=== PATIENT | male | born 1970 | race Caucasian/White ===

== ENCOUNTER 2018-06-15 14:25 | Inpatient (IN) | payer OTHER ==
[~2018-06-15] VITALS: Ht 180.3 cm; Wt 82.5 kg
[~2018-06-15 14:25] MED LIST: FOLI-49 PO; METO-448 PO; MULT-761 PO; THIA100T10 PO
[2018-06-15 19:56] VITALS: PULSE 101
[2018-06-15 20:00] VITALS: PULSE 97
[2018-06-15] MEDS ORDERED: LORAZEPAM 2 MG INJ IV PRN (22:00)
[2018-06-15] MEDS ORDERED: BISACODYL (EC) 5 MG TAB PO PRN (22:00)
[2018-06-15] MEDS ORDERED: NACL 0.9% 3 ML SYG IV SCH (22:00)
[2018-06-15] MEDS ORDERED: DOCUSATE SODIUM 100 MG CAP PO PRN (22:00)
[2018-06-15] MEDS: CHLORDIAZEPOXIDE 25 MG CAP PO SCH (23:03)
[2018-06-15 23:30] VITALS: BP 126/82; RESP 18
[2018-06-16] VITALS (12 sets, daily range): BP systolic 120–174; BP diastolic 75–106; PULSE 84–109; RESP 16–25; Ht 180.3 cm; Wt 82.5 kg
--- NOTE | 2018-06-16 00:40 | HP ---
Date/Time of Note Date/Time of Note DATE: 06/16/18 TIME: 00:40 Assessment/Plan VTE Prophylaxis SCD applied (from Nsg): Yes Pharmacological prophylaxis: NA/contraindicated Pharm contraindication: low risk/ambulating Assessment/Plan Hospital Course This is a 47-year-old male being admitted to the telemetry floor for: #1 acute encephalopathy: Toxic metabolic versus seizure: Alcohol withdrawal possibly resulting in seizure. Will obtain a stat CT of the brain without contrast. Patient at the current time is awake and alert and he is answering questions though he does appear anxious. PRN Ativan, Librium. Banana bag daily. #2 alcohol withdrawal: Patient does appear anxious and concern is for signs of withdrawal. Librium taper, PRN Ativan. Banana bag. Folate MVI and thiamine daily. #3 suspect alcohol withdrawal seizure: We will obtain a CT of the head without contrast, fall precautions, seizure precautions, PRN Ativan for seizures, will consult neurology for any further recommendations. #4 History of hepatitis C: HCV viral load,, liver US #5 DVT GI prophylaxis: SCDs, no GI prophylaxis indicated Further treatment strategy will be implemented for the clinical course. Results 24hrs Laboratory Tests Test 06/15/18 22:49 Ethyl Alcohol Level < 10.0 H HPI/ROS Admit Date/Time Admit Date/Time Jun 15, 2018 at 19:23 Hx of Present Illness Chief complaint: Tonic-clonic seizure, alcohol withdrawal This is a 47-year-old male with a past medical history of alcohol abuse, alcohol withdrawal syndrome and alcohol withdrawal seizures who presented to [facility] after having seizures. Based on the transfer documentation it appears that the patient presented there with tonic-clonic seizures that were intermittent. Patient was also noted to have a tongue laceration. He had reportedly not drunk for 12 hours. At the facility patient was noted to have a tongue laceration and apparently had a taking care of. Patient also was given Ativan for withdrawal symptoms at the transfer facility. Upon examination [facility] patient reports that the last thing he remembers was walking down the street to get some alcohol and then next thing he knew he woke up in the hospital. He denies any headaches. He does report feeling slightly anxious. Pertinent laboratory from transfer facility please see chart for full details: CBC White blood cells 4/hemoglobin 12.3/hematocrit 36.5/platelets 195 INR 1.0 prothrombin time: 10.4/partial thromboplastin time 25 seconds Sodium 131/potassium 3.4/chloride 93/come dioxide 29/BUN 9/creatinine 0.7/bili total 1/AST 140/ALT 104/alk phos 61 Blood alcohol less than 5 EKG: Normal sinus rhythm at approximately [address] or T wave abnormalities concerning for acute ischemia. Allergies: NKDA Medications: See MAR JOO Constitutional: As per HPI Eyes : No pain discharge or redness or change in visual acuity ENT: No pain, sore throat, congestion, congestion, dysphagia or discharge Respiratory: No shortness of breath, cough, sputum, wheezing, or pleuritic pain Cardiovascular: No chest pain, palpitation, PND, or edema GI : no change in appetite, abdominal pain, nausea, vomiting, diarrhea, constipation, or change in the color his stool Genitourinary: No dysuria, hematuria, flank pain , discharge or CVA tenderness Musculoskeletal: No joint pain, back pain, neck pain, restricted range of motion in neck or joints Skin: No rash, bruising or hives Neuro: As per HPI Endocrine: No polyuria, polydipsia, temperature intolerance Psych: As per HPI PMH/Family/Social Past Medical History History of right leg cancer status post chemoradiation and surgery? hepatitis C? HTN: Medications Current Medications IV Flush (NS 3 ml) 3 ml PER PROTOCOL IV ; Start 06/15/18 at 22:00 Lorazepam (Ativan) 1 mg Q2H PRN IV seizure/withdrawl symptoms; Start 06/15/18 at 22:00 Acetaminophen (Tylenol Tab) 650 mg Q6H PRN PO PAIN LEVEL 1-3 OR FEVER; Start 06/15/18 at 22:00 Docusate Sodium (Colace) 100 mg Q12H PRN PO CONSTIPATION; Start 06/15/18 at 22:00 Bisacodyl (Dulcolax) 5 mg DAILY PRN PO CONSTIPATION; Start 06/15/18 at 22:00 Multivitamins 10 ml/Thiamine HCl 100 mg/Folic Acid 1 mg/Sodium Chloride 1,011.2 ml @ 125 mls/ hr DAILY@09 IVPB ; Start 06/16/18 at 09:00 Chlordiazepoxide (Librium) 50 mg TID PO Last administered on 06/15/18at 23:03; Admin Dose 50 MG; Start 06/15/18 at 22:00; Stop 06/16/18 at 21:59 Coded Allergies: No Known Allergy (Unverified , 03/18/18) Past Surgical History Right leg surgery Family History Significant Family History: no pertinent family hx Social History Alcohol Use: heavy Smoking Status: Unknown if ever smoked Drug Use: marijuana Exam/Review of Systems Vital Signs Vitals Vital Signs Date Temp Pulse Resp B/P (MAP) Pulse Ox O2 O2 Flow FiO2 Time Delivery Rate 06/16/18 84 00:00 06/15/18 98.6 18 126/82 98 Room Air 23:30 (97) Exam Exam General: Patient is lying in bed in no acute distress, easily arousable. HEENT: Atraumatic, normocephalic. The pupils are equal, round and reactive. Extraocular motor are intact, laceration of the tongue with sutures noted Neck: Supple with full range of motion. No rigidity or meningismus Chest: Nontender Lungs: Clear to auscultation bilaterally no crackles rales or wheezing Heart: Normal S1-S2, Regular rhythm and rate. Abdomen: Soft , nontender, nondistended , bowel sounds are present. No guarding no rebound tenderness , No masses or organomegaly. No costovertebral temporal angle mass Extremities: Normal to inspection, no edema no cyanosis Skin: Abrasion noted of the right knee Neurologic: Normal mental status, speech normal, cranial nerves II through XII are intact, motor and sensory are intact, not assessed secondary to clinical condition Psych: Appears slightly anxious SPENSER SAMANIEGO Jun 16, 2018 00:40
[2018-06-16] MEDS ORDERED: MULTIVITAMINS 10 ML, THIAMINE 100 MG, FOLIC ACID 1 MG in SOD CHLORIDE 0.9% 1,000 ML IVPB SCH (09:00)
[2018-06-16] MEDS: CHLORDIAZEPOXIDE 25 MG CAP PO SCH ×4 (09:13→22:19)
[2018-06-16] MEDS: THIAMINE 100 MG TAB PO SCH (09:28)
[2018-06-16] MEDS: FOLIC ACID 1 MG TAB PO SCH (09:29)
[2018-06-16] MEDS: MULTIVITAMINS THERAPEUTIC TAB PO SCH (09:29)
--- NOTE | 2018-06-16 13:30 | PN ---
Date/Time of Note Date/Time of Note DATE: 06/16/18 TIME: 13:24 Assessment/Plan VTE Prophylaxis Risk score (from Ns)>0 risk: 4 SCD applied (from Ns): Yes Pharmacological prophylaxis: NA/contraindicated Pharm contraindication: low risk/ambulating Lines/Catheters IV Catheter Type (from Nrsg): Peripheral IV Urinary Cath still in place: No Assessment/Plan Assessment/Plan 1. Alcohol related seizure, no recurrence 2. Alcoholism with withdrawal, on ativan PRN. thiamine and folic acid 3. HTN, norvasc 4. Hepatitis C, follow up with PCP 5. DVT prophylaxis: SCDs Result Diagram: 06/16/18 0548 06/16/18 0548 Results 24hrs Laboratory Tests Test 06/15/18 22:49 06/16/18 05:48 Ethyl Alcohol Level < 10.0 H White Blood Count 5.5 Red Blood Count 3.56 L Hemoglobin 11.9 L Hematocrit 35.5 L Mean Corpuscular Volume 99.7 Mean Corpuscular Hemoglobin 33.4 H Mean Corpuscular Hemoglobin Concent 33.5 Red Cell Distribution Width 12.2 Platelet Count 196 Mean Platelet Volume 9.9 Immature Granulocytes % 0.400 Neutrophils % 71.3 Lymphocytes % 19.4 Monocytes % 8.0 Eosinophils % 0.4 Basophils % 0.5 Nucleated Red Blood Cells % 0.0 Immature Granulocytes # 0.020 Neutrophils # 3.9 Lymphocytes # 1.1 Monocytes # 0.4 Eosinophils # 0.0 Basophils # 0.0 Nucleated Red Blood Cells # 0.0 Sodium Level 140 Potassium Level 3.6 Chloride Level 99 Carbon Dioxide Level 27 Anion Gap 14 H Blood Urea Nitrogen 14 Creatinine 0.64 Est Glomerular Filtrat Rate mL/min > 60 Glucose Level 124 Hemoglobin A1c 5.0 Calcium Level 9.1 Magnesium Level 1.8 Total Bilirubin 1.6 H Direct Bilirubin 0.00 Indirect Bilirubin 1.6 H Aspartate Amino Transf (AST/SGOT) 200 H Alanine Aminotransferase (ALT/SGPT) 131 H Alkaline Phosphatase 72 Total Protein 8.5 H Albumin 4.2 Globulin 4.30 H Albumin/Globulin Ratio 0.97 Triglycerides Level 68 Cholesterol Level 150 LDL Cholesterol, Calculated 87 HDL Cholesterol 49 Cholesterol/HDL Ratio 3.0 Thyroid Stimulating Hormone (TSH) 1.820 Subjective 24 Hr Interval Summary Free Text/Dictation full alert and oriented, no seizure Exam/Review of Systems Vital Signs Vitals Vital Signs Date Temp Pulse Resp B/P (MAP) Pulse Ox O2 O2 Flow FiO2 Time Delivery Rate 06/16/18 99.9 102 25 166/106 96 Room Air 11:56 (126) Intake and Output 06/15/18 06/15/18 06/16/18 1515:00 23:00 07:00 IntakeIntake Total 400 ml BalanceBalance 400 ml Exam Constitutional: alert, oriented, well developed Head: normocephalic, atraumatic Eyes: nl conjunctiva, EOMI, nl lids, nl sclera, PERRL ENMT: nl external ears & nose, nl lips & teeth, nl nasal mucosa & septum Neck: supple, non-tender Respiratory: clear to auscultation, normal air movement; No congested cough, No crackles/rales, No diminished breath sounds, No intercostal retraction, No labored breathing, No respirations, No tactile fremitus, No wheezing, No other Cardiovascular: regular rate and rhythm, nl pulses; No bruits, No diastolic murmur, No edema, No gallop, No irregular rhythm, No jugular venous distention (JVD), No murmurs/extra sounds, No rub, No systolic murmur, No S3, No S4, No other Gastrointestinal: soft, nl liver, spleen, non-tender Musculoskeletal: nl extremities to inspection Extremities: normal pulses; No calf tenderness, No cyanosis, No clubbing, No edema, No pitting pedal edema, No palpable cord, No tenderness, No other Neurological: [employer] II-XII intact, nl mental status, nl speech, nl strength Medications Medications Current Medications IV Flush (NS 3 ml) 3 ml PER PROTOCOL IV ; Start 06/15/18 at 22:00 Lorazepam (Ativan) 1 mg Q2H PRN IV seizure/withdrawl symptoms Last administered on 06/16/18at 11:08; Admin Dose 1 MG; Start 06/15/18 at 22:00 Acetaminophen (Tylenol Tab) 650 mg Q6H PRN PO PAIN LEVEL 1-3 OR FEVER; Start 06/15/18 at 22:00 Docusate Sodium (Colace) 100 mg Q12H PRN PO CONSTIPATION; Start 06/15/18 at 22:00 Bisacodyl (Dulcolax) 5 mg DAILY PRN PO CONSTIPATION; Start 06/15/18 at 22:00 Multivitamins 10 ml/Thiamine HCl 100 mg/Folic Acid 1 mg/Sodium Chloride 1,011.2 ml @ 125 mls/ hr DAILY@09 IVPB Last administered on 06/16/18 09:13; Admin Dose 125 MLS/HR; Start 06/16/18 at 09:00 Chlordiazepoxide (Librium) 50 mg TID PO Last administered on 06/16/18 09:13; Admin Dose 50 MG; Start 06/15/18 at 22:00; Stop 06/16/18 at 21:59 Folic Acid (Folic Acid) 1 mg DAILY PO Last administered on 06/16/18 09:29; Admin Dose 1 MG; Start 06/16/18 at 09:00 Multivitamins Therapeutic (Theragran) 1 tab DAILY PO Last administered on 06/16/18 09:29; Admin Dose 1 TAB; Start 06/16/18 at 09:00 Thiamine HCl (Vitamin B1) 100 mg DAILY PO Last administered on 06/16/18at 09:28; Admin Dose 100 MG; Start 06/16/18 at 09:00 Chlordiazepoxide (Librium) 25 mg QID PO ; Start 06/16/18 at 22:00; Stop 06/17/18 at 21:59 Chlordiazepoxide (Librium) 25 mg TID PO ; Start 06/17/18 at 22:00; Stop 06/18/18 at 21:59 CHRISTINA BUTT MD Jun 16, 2018 13:30
[2018-06-16] MEDS: AMLODIPINE 5 MG TAB PO SCH (14:03)
--- NOTE | 2018-06-16 15:13 | CONS ---
Assessment/Plan Assessment/Plan Hospital Course A: 47 yo M with Hx of ETOH abuse and other comorbidities... who presents to [facility] in [place] from an OSH for continued care following reported seizures in the context of ETOH withdrawal.. He was noted to have been encephalopathic initially, which is likely attributable to a post-ictal encephalopathy and medication effect...superimposed on ETOH w/d.. CTH is unremarkable.. P: OK to defer MRI brain for now.. Ativan IV PRN seizure > 5 min or for cluster Limit other sedating mediations where possible Await UA, UDS; Add B1, B12 levels Agree with folate, thiamine supplementation daily Other medical management and supportive care per primary Will follow clinically Result Diagram: 06/16/18 0548 06/16/18 0548 Results 24hrs Laboratory Tests Test 06/15/18 22:49 06/16/18 05:48 Ethyl Alcohol Level < 10.0 H White Blood Count 5.5 Red Blood Count 3.56 L Hemoglobin 11.9 L Hematocrit 35.5 L Mean Corpuscular Volume 99.7 Mean Corpuscular Hemoglobin 33.4 H Mean Corpuscular Hemoglobin Concent 33.5 Red Cell Distribution Width 12.2 Platelet Count 196 Mean Platelet Volume 9.9 Immature Granulocytes % 0.400 Neutrophils % 71.3 Lymphocytes % 19.4 Monocytes % 8.0 Eosinophils % 0.4 Basophils % 0.5 Nucleated Red Blood Cells % 0.0 Immature Granulocytes # 0.020 Neutrophils # 3.9 Lymphocytes # 1.1 Monocytes # 0.4 Eosinophils # 0.0 Basophils # 0.0 Nucleated Red Blood Cells # 0.0 Sodium Level 140 Potassium Level 3.6 Chloride Level 99 Carbon Dioxide Level 27 Anion Gap 14 H Blood Urea Nitrogen 14 Creatinine 0.64 Est Glomerular Filtrat Rate mL/min > 60 Glucose Level 124 Hemoglobin A1c 5.0 Calcium Level 9.1 Magnesium Level 1.8 Total Bilirubin 1.6 H Direct Bilirubin 0.00 Indirect Bilirubin 1.6 H Aspartate Amino Transf (AST/SGOT) 200 H Alanine Aminotransferase (ALT/SGPT) 131 H Alkaline Phosphatase 72 Total Protein 8.5 H Albumin 4.2 Globulin 4.30 H Albumin/Globulin Ratio 0.97 Triglycerides Level 68 Cholesterol Level 150 LDL Cholesterol, Calculated 87 HDL Cholesterol 49 Cholesterol/HDL Ratio 3.0 Thyroid Stimulating Hormone (TSH) 1.820 Consultation Date/Type/Reason Admit Date/Time Jun 15, 2018 at 19:23 Type of Consult Neurology Reason for Consultation seizure Requesting Provider: SPENSER SAMANIEGO Date/Time of Note DATE: 06/16/18 TIME: 15:13 Hx of Present Illness This is a 47 yo M with hx of heavy EtOH abuse, homelessness and other comorbidities who presents from an OSH for continued care following presumed seizures.. History was obtained from pt and chart review. The pt currently endorses anxiety but denies headache, weakness, dizziness, lethargy, confusion, tremors. It is elsewhere noted: Hx of Present Illness Chief complaint: Tonic-clonic seizure, alcohol withdrawal This is a 47-year-old male with a past medical history of alcohol abuse, alcohol withdrawal syndrome and alcohol withdrawal seizures who presented to [facility] after having seizures. Based on the transfer documentation it appears that the patient presented there with tonic-clonic seizures that were intermittent. Patient was also noted to have a tongue laceration. He had reportedly not drunk for 12 hours. At the facility patient was noted to have a tongue laceration and apparently had a taking care of. Patient also was given Ativan for withdrawal symptoms at the transfer facility. Upon examination [facility] patient reports that the last thing he remembers was walking down the street to get some alcohol and then next thing he knew he woke up in the hospital. He denies any headaches. He does report feeling slightly anxious. negative unless noted otherwise in HPI Exam/Review of Systems Vital Signs Vitals Vital Signs Date Temp Pulse Resp B/P (MAP) Pulse Ox O2 O2 Flow FiO2 Time Delivery Rate 06/16/18 90 12:01 06/16/18 99.9 25 166/106 96 Room Air 11:56 (126) Intake and Output 06/15/18 06/15/18 06/16/18 1515:00 23:00 07:00 IntakeIntake Total 400 ml BalanceBalance 400 ml Exam PE: Gen Appearance: Unkempt, disheveled, anxious HEENT: Normocephalic Cardiovascular: Regular rate Abdomen: Soft Extremities: Dry NE: The patient was alert and oriented.. Language was normal. Fund of knowledge was adequate. Pupils were equal and reactive to light. There was no afferent pupillary defect. Visual ibanez were normal. Funduscopic examination was limited. Extra-ocular movements were full. Ptosis was absent. There was no nystagmus. Facial sensation was normal. Face was symmetric with normal strength. Hearing was intact. Palate movements were normal. Neck strength was normal. There was normal tongue bulk and speed of movement. Tone was normal. Muscle bulk was normal. Tremors noted in BL hands.. Arms and legs were strong to confrontation. Vibration sensation was normal. Temperature and pinprick sensation was normal. Rapid alternating movements were normal. There was no dysmetria. There was no intention tremor. Gait was deferred due to bedrest. Arm and leg reflexes were 2+ and symmetric. Nance's sign was absent. Plantar responses were flexor. Medications Medications Current Medications IV Flush (NS 3 ml) 3 ml PER PROTOCOL IV ; Start 06/15/18 at 22:00 Lorazepam (Ativan) 1 mg Q2H PRN IV seizure/withdrawl symptoms Last administered on 06/16/18at 11:08; Admin Dose 1 MG; Start 06/15/18 at 22:00 Acetaminophen (Tylenol Tab) 650 mg Q6H PRN PO PAIN LEVEL 1-3 OR FEVER; Start 06/15/18 at 22:00 Docusate Sodium (Colace) 100 mg Q12H PRN PO CONSTIPATION; Start 06/15/18 at 22:00 Bisacodyl (Dulcolax) 5 mg DAILY PRN PO CONSTIPATION; Start 06/15/18 at 22:00 Chlordiazepoxide (Librium) 50 mg TID PO Last administered on 06/16/18at 14:03; Admin Dose 50 MG; Start 06/15/18 at 22:00; Stop 06/16/18 at 21:59 Folic Acid (Folic Acid) 1 mg DAILY PO Last administered on 06/16/18at 09:29; Admin Dose 1 MG; Start 06/16/18 at 09:00 Multivitamins Therapeutic (Theragran) 1 tab DAILY PO Last administered on 06/16at 09:29; Admin Dose 1 TAB; Start 06/16/18 at 09:00 Thiamine HCl (Vitamin B1) 100 mg DAILY PO Last administered on 06/16/18at 09:28; Admin Dose 100 MG; Start 06/16/18 at 09:00 Chlordiazepoxide (Librium) 25 mg QID PO ; Start 06/16/18 at 22:00; Stop 06/17/18 at 21:59 Chlordiazepoxide (Librium) 25 mg TID PO ; Start 06/17/18 at 22:00; Stop 06/18/18 at 21:59 Potassium Chloride 10 meq/ Sodium Chloride 1,005 ml @ 50 mls/hr Q20H6M IV ; Start 06/16/18 at 14:00 Amlodipine Besylate (Norvasc) 5 mg DAILY PO Last administered on 06/16/18at 14:03; Admin Dose 5 MG; Start 06/16/18 at 14:00 Past Medical History reviewed Medications Current Medications IV Flush (NS 3 ml) 3 ml PER PROTOCOL IV ; Start 06/15/18 at 22:00 Lorazepam (Ativan) 1 mg Q2H PRN IV seizure/withdrawl symptoms Last administered on 06/16/18at 11:08; Admin Dose 1 MG; Start 06/15/18 at 22:00 Acetaminophen (Tylenol Tab) 650 mg Q6H PRN PO PAIN LEVEL 1-3 OR FEVER; Start 06/15/18 at 22:00 Docusate Sodium (Colace) 100 mg Q12H PRN PO CONSTIPATION; Start 06/15/18 at 22:00 Bisacodyl (Dulcolax) 5 mg DAILY PRN PO CONSTIPATION; Start 06/15/18 at 22:00 Chlordiazepoxide (Librium) 50 mg TID PO Last administered on 06/16/18at 14:03; Admin Dose 50 MG; Start 06/15/18 at 22:00; Stop 06/16/18 at 21:59 Folic Acid (Folic Acid) 1 mg DAILY PO Last administered on 06/16/18at 09:29; Ad min Dose 1 MG; Start 06/16/18 at 09:00 Multivitamins Therapeutic (Theragran) 1 tab DAILY PO Last administered on 06/16/18at 09:29; Admin Dose 1 TAB; Start 06/16/18 at 09:00 Thiamine HCl (Vitamin B1) 100 mg DAILY PO Last administered on 06/16/18at 09:28; Admin Dose 100 MG; Start 06/16/18 at 09:00 Chlordiazepoxide (Librium) 25 mg QID PO ; Start 06/16/18 at 22:00; Stop 06/17/18 at 21:59 Chlordiazepoxide (Librium) 25 mg TID PO ; Start 06/17/18 at 22:00; Stop 06/18/18 at 21:59 Potassium Chloride 10 meq/ Sodium Chloride 1,005 ml @ 50 mls/hr Q20H6M IV ; Start 06/16/18 at 14:00 Amlodipine Besylate (Norvasc) 5 mg DAILY PO Last administered on 06/16/18at 14:03; Admin Dose 5 MG; Start 06/16/18 at 14:00 Allergies: Coded Allergies: No Known Allergy (Unverified , 03/18/18) Past Surgical History reviewed Social History reviewed Alcohol Use: heavy Smoking Status: Unknown if ever smoked Drug Use: marijuana LAURIE IQBAL NP Jun 16, 2018 15:13 TUSHAR OLMSTEAD Jun 17, 2018 07:11
[2018-06-16] MEDS: POTASSIUM CHLORIDE 10 MEQ in SOD CHLORIDE 0.45% 1,000 ML IV SCH (17:10)
[2018-06-17] VITALS (10 sets, daily range): BP systolic 127–148; BP diastolic 66–86; PULSE 71–138; RESP 16–22
[2018-06-17] MEDS: MULTIVITAMINS THERAPEUTIC TAB PO SCH (09:55)
[2018-06-17] MEDS: AMLODIPINE 5 MG TAB PO SCH (09:55)
[2018-06-17] MEDS: THIAMINE 100 MG TAB PO SCH (09:55)
[2018-06-17] MEDS: CHLORDIAZEPOXIDE 25 MG CAP PO SCH ×5 (09:55→20:58)
[2018-06-17] MEDS: FOLIC ACID 1 MG TAB PO SCH (09:55)
[2018-06-17] MEDS: POTASSIUM CHLORIDE 10 MEQ in SOD CHLORIDE 0.45% 1,000 ML IV SCH ×2 (10:06→16:53)
--- NOTE | 2018-06-17 14:13 | CONS ---
Assessment/Plan Assessment/Plan Hospital Course A: 47 yo M with Hx of ETOH abuse and other comorbidities... who presents to [facility] in [place] from an OSH for continued care following reported seizures in the context of ETOH withdrawal.. He was noted to have been encephalopathic initially, which is likely attributable to a post-ictal encephalopathy and medication effect...superimposed on ETOH w/d.. CTH is unremarkable.. P: OK to defer MRI brain for now.. Ativan IV PRN seizure > 5 min or for cluster Limit other sedating mediations where possible Await UA, UDS, B1 level Agree with folate, thiamine supplementation daily Other medical management and supportive care per primary Will follow clinically Result Diagram: 06/17/18 0602 06/17/18 0602 Results 24hrs Laboratory Tests Test 06/17/18 06:02 White Blood Count 5.8 Red Blood Count 3.56 L Hemoglobin 11.8 L Hematocrit 35.7 L Mean Corpuscular Volume 100.3 Mean Corpuscular Hemoglobin 33.1 H Mean Corpuscular Hemoglobin Concent 33.1 Red Cell Distribution Width 12.0 Platelet Count 203 Mean Platelet Volume 9.8 Immature Granulocytes % 0.300 Neutrophils % 66.6 Lymphocytes % 20.7 Monocytes % 11.2 H Eosinophils % 0.7 Basophils % 0.5 Nucleated Red Blood Cells % 0.0 Immature Granulocytes # 0.020 Neutrophils # 3.9 Lymphocytes # 1.2 Monocytes # 0.7 Eosinophils # 0.0 Basophils # 0.0 Nucleated Red Blood Cells # 0.0 Sodium Level 138 Potassium Level 3.5 Chloride Level 103 Carbon Dioxide Level 23 Anion Gap 12 Blood Urea Nitrogen 12 Creatinine 0.60 L Est Glomerular Filtrat Rate mL/min > 60 Glucose Level 108 Calcium Level 9.2 Total Bilirubin 1.1 Direct Bilirubin 0.00 Indirect Bilirubin 1.1 Aspartate Amino Transf (AST/SGOT) 192 H Alanine Aminotransferase (ALT/SGPT) 134 H Alkaline Phosphatase 76 Total Protein 8.2 H Albumin 4.1 Globulin 4.10 H Albumin/Globulin Ratio 1.00 Vitamin B12 Level 498 Consultation Date/Type/Reason Admit Date/Time Jun 15, 2018 at 19:23 Type of Consult Neurology Reason for Consultation seizure Requesting Provider: SPENSER SAMANIEGO Date/Time of Note DATE: 06/17/18 TIME: 14:10 24 HR Interval Summary Free Text/Dictation Continues telemetry monitoring. Pt states that he's doing much better than yesterday. Exam Vital Signs Vitals Vital Signs Date Temp Pulse Resp B/P (MAP) Pulse Ox O2 O2 Flow FiO2 Time Delivery Rate 06/17/18 95 12:01 06/17/18 99.6 19 148/84 95 Room Air 11:13 (105) Intake and Output 06/16/18 06/16/18 06/17/18 1515:00 23:00 07:00 IntakeIntake Total 1275 ml 1050 ml OutputOutput Total 850 ml BalanceBalance 425 ml 1050 ml Exam PE: Gen Appearance: Unkempt, disheveled, anxious HEENT: Normocephalic Cardiovascular: Regular rate Abdomen: Soft Extremities: Dry NE: The patient was alert and oriented.. Language was normal. Fund of knowledge was adequate. Pupils were equal and reactive to light. There was no afferent pupillary defect. Visual ibanez were normal. Funduscopic examination was limited. Extra-ocular movements were full. Ptosis was absent. There was no nystagmus. Facial sensation was normal. Face was symmetric with normal strength. Hearing was intact. Palate movements were normal. Neck strength was normal. There was normal tongue bulk and speed of movement. Tone was normal. Muscle bulk was normal. Mild tremors noted in BL hands.. Arms and legs were strong to confrontation. Vibration sensation was normal. Temperature and pinprick sensation was normal. Rapid alternating movements were normal. There was no dysmetria. There was no intention tremor. Gait was deferred due to bedrest. Arm and leg reflexes were 2+ and symmetric. Nance's sign was absent. Plantar responses were flexor. LAURIE IQBAL NP Jun 17, 2018 14:13
--- NOTE | 2018-06-17 15:41 | PN ---
Date/Time of Note Date/Time of Note DATE: 06/17/18 TIME: 15:38 Assessment/Plan VTE Prophylaxis Risk score (from Ns)>0 risk: 3 [place] [facility] [place] Pharmacological prophylaxis: LMWH Lines/Catheters IV [facility] (from [facility]): Peripheral IV Urinary Cath still in place: No Assessment/Plan Assessment/Plan 1. Alcohol related seizure, no recurrence 2. Alcoholism with withdrawal, on ativan PRN. thiamine and folic acid 3. HTN, norvasc 4. Hepatitis C, follow up with PCP 5. DVT prophylaxis: SCDs 6. Homeless, lead case manager for discharge plan Result Diagram: 06/17/18 0602 06/17/18 0602 Results 24hrs Laboratory Tests Test 06/17/18 06:02 White Blood Count 5.8 Red Blood Count 3.56 L Hemoglobin 11.8 L Hematocrit 35.7 L Mean Corpuscular Volume 100.3 Mean Corpuscular Hemoglobin 33.1 H Mean Corpuscular Hemoglobin Concent 33.1 Red Cell Distribution Width 12.0 Platelet Count 203 Mean Platelet Volume 9.8 Immature Granulocytes % 0.300 Neutrophils % 66.6 Lymphocytes % 20.7 Monocytes % 11.2 H Eosinophils % 0.7 Basophils % 0.5 Nucleated Red Blood Cells % 0.0 Immature Granulocytes # 0.020 Neutrophils # 3.9 Lymphocytes # 1.2 Monocytes # 0.7 Eosinophils # 0.0 Basophils # 0.0 Nucleated Red Blood Cells # 0.0 Sodium Level 138 Potassium Level 3.5 Chloride Level 103 Carbon Dioxide Level 23 Anion Gap 12 Blood Urea Nitrogen 12 Creatinine 0.60 L Est Glomerular Filtrat Rate mL/min > 60 Glucose Level 108 Calcium Level 9.2 Total Bilirubin 1.1 Direct Bilirubin 0.00 Indirect Bilirubin 1.1 Aspartate Amino Transf (AST/SGOT) 192 H Alanine Aminotransferase (ALT/SGPT) 134 H Alkaline Phosphatase 76 Total Protein 8.2 H Albumin 4.1 Globulin 4.10 H Albumin/Globulin Ratio 1.00 Vitamin B12 Level 498 Subjective 24 Hr Interval Summary Free Text/Dictation no seizures, alert and oriented Exam/Review of Systems Vital Signs Vitals Vital Signs Date Temp Pulse Resp B/P (MAP) Pulse Ox O2 O2 Flow FiO2 Time Delivery Rate 06/17/18 95 12:01 06/17/18 99.6 19 148/84 95 Room Air 11:13 (105) Intake and Output 06/16/18 06/16/18 06/17/18 1515:00 23:00 07:00 IntakeIntake Total 1275 ml 1050 ml OutputOutput Total 850 ml BalanceBalance 425 ml 1050 ml Exam Constitutional: alert, oriented, well developed Head: normocephalic, atraumatic Eyes: nl conjunctiva, EOMI, nl lids, nl sclera, PERRL ENMT: nl external ears & nose, nl lips & teeth, nl nasal mucosa & septum Neck: supple, non-tender Respiratory: clear to auscultation, normal air movement; No congested cough, No crackles/rales, No diminished breath sounds, No intercostal retraction, No labored breathing, No respirations, No tactile fremitus, No wheezing, No other Cardiovascular: regular rate and rhythm, nl pulses; No bruits, No diastolic murmur, No edema, No gallop, No irregular rhythm, No jugular venous distention (JVD), No murmurs/extra sounds, No rub, No systolic murmur, No S3, No S4, No other Gastrointestinal: soft, nl liver, spleen, non-tender Musculoskeletal: nl extremities to inspection Extremities: normal pulses; No calf tenderness, No cyanosis, No clubbing, No edema, No pitting pedal edema, No palpable cord, No tenderness, No other Neurological: EYEGLASS LENS GRINDER II-XII intact, nl mental status, nl speech, nl strength Skin: nl turgor Medications Medications Current Medications IV Flush (NS 3 ml) 3 ml PER PROTOCOL IV ; Start 06/15/18 at 22:00 Lorazepam (Ativan) 1 mg Q2H PRN IV seizure/withdrawl symptoms Last administered on 06/16/18at 11:08; Admin Dose 1 MG; Start 06/15/18 at 22:00 Acetaminophen (Tylenol Tab) 650 mg Q6H PRN PO PAIN LEVEL 1-3 OR FEVER; Start 06/15/18 at 22:00 Docusate Sodium (Colace) 100 mg Q12H PRN PO CONSTIPATION; Start 06/15/18 at 22:00 Bisacodyl (Dulcolax) 5 mg DAILY PRN PO CONSTIPATION; Start 06/15/18 at 22:00 Folic Acid (Folic Acid) 1 mg DAILY PO Last administered on 06/17/18at 09:55; Admin Dose 1 MG; Start 06/16/18 at 09:00 Multivitamins Therapeutic (Theragran) 1 tab DAILY PO Last administered on 06/17/18 09:55; Admin Dose 1 TAB; Start 06/16/18 at 09:00 Thiamine HCl (Vitamin B1) 100 mg DAILY PO Last administered on 06/17/18at 09:55; Admin Dose 100 MG; Start 06/16/18 at 09:00 Chlordiazepoxide (Librium) 25 mg QID PO Last administered on 06/17/18at 13:08; Admin Dose 25 MG; Start 06/16/18 at 22:00; Stop 06/17/18 at 21:59 Chlordiazepoxide (Librium) 25 mg TID PO ; Start 06/17/18 at 22:00; Stop 06/18/18 at 21:59 Potassium Chloride 10 meq/ Sodium Chloride 1,005 ml @ 50 mls/hr Q20H6M IV Last administered on 06/16/18at 17:10; Admin Dose 50 MLS/HR; Start 06/16/18 at 14:00 Amlodipine Besylate (Norvasc) 5 mg DAILY PO Last administered on 06/17/18at 09:55; Admin Dose 5 MG; Start 06/16/18 at 14:00 CHRISTINA BUTT MD Jun 17, 2018 15:41
[2018-06-17] MEDS: COLLAGENASE 5 GM (UD JAR) TOP SCH (20:58)
[2018-06-18] VITALS (11 sets, daily range): BP systolic 105–158; BP diastolic 63–90; PULSE 73–130; RESP 16–18
[2018-06-18] MEDS: COLLAGENASE 5 GM (UD JAR) TOP SCH ×2 (08:12→21:17)
[2018-06-18] MEDS: FOLIC ACID 1 MG TAB PO SCH (08:12)
[2018-06-18] MEDS: THIAMINE 100 MG TAB PO SCH (08:12)
[2018-06-18] MEDS: MULTIVITAMINS THERAPEUTIC TAB PO SCH (08:12)
[2018-06-18] MEDS: ACETAMINOPHEN 325 MG TAB PO PRN ×2 (08:12→21:17)
[2018-06-18] MEDS: CHLORDIAZEPOXIDE 25 MG CAP PO SCH ×3 (08:12→21:17)
[2018-06-18] MEDS: AMLODIPINE 5 MG TAB PO SCH (08:13)
[2018-06-18] MEDS: ENOXAPARIN 30 MG/0.3 ML SYG SC SCH (08:19)
--- NOTE | 2018-06-18 14:34 | CONS ---
Assessment/Plan Assessment/Plan Hospital Course A: 47 yo M with Hx of ETOH abuse and other comorbidities... who presents to [facility] in [place] from an OSH for continued care following reported seizures in the context of ETOH withdrawal.. He was noted to have been encephalopathic initially, which is likely attributable to a post-ictal encephalopathy and medication effect...superimposed on ETOH w/d.. CTH is unremarkable.. P: OK to defer MRI brain for now.. Ativan IV PRN seizure > 5 min or for cluster Limit other sedating mediations where possible Await UA, UDS, B1 level Agree with folate, thiamine supplementation daily Other medical management and supportive care per primary Will follow clinically Result Diagram: 06/17/18 0602 06/18/18 0538 Results 24hrs Laboratory Tests Test 06/18/18 05:38 06/18/18 11:50 Sodium Level 139 Potassium Level 3.9 Chloride Level 105 Carbon Dioxide Level 25 Anion Gap 9 Blood Urea Nitrogen 12 Creatinine 0.62 Est Glomerular Filtrat Rate mL/min > 60 Glucose Level 120 Calcium Level 9.1 Total Bilirubin 0.6 Direct Bilirubin 0.00 Indirect Bilirubin 0.6 Aspartate Amino Transf (AST/SGOT) 151 H Alanine Aminotransferase (ALT/SGPT) 120 H Alkaline Phosphatase 71 Total Protein 8.0 Albumin 4.0 Globulin 4.00 H Albumin/Globulin Ratio 1.00 Lab Scanned Report REFERENCE LAB Consultation Date/Type/Reason Admit Date/Time Jun 15, 2018 at 19:23 Type of Consult Neurology Reason for Consultation seizure Requesting Provider: SPENSER SAMANIEGO Date/Time of Note DATE: 06/18/18 TIME: 14:34 24 HR Interval Summary Free Text/Dictation Cont telemetry monitoring. Pt states he's doing much better today though has c/o constipation. Exam Vital Signs Vitals Vital Signs Date Temp Pulse Resp B/P (MAP) Pulse Ox O2 O2 Flow FiO2 Time Delivery Rate 06/18/18 83 12:18 06/18/18 98.7 16 124/76 97 Room Air 4.0 11:23 (92) Intake and Output 06/17/18 06/17/18 06/18/18 1515:00 23:00 07:00 IntakeIntake Total 750 ml 1400 ml OutputOutput Total 1700 ml BalanceBalance -950 ml 1400 ml Exam PE: Gen Appearance: Unkempt, disheveled, anxious HEENT: Normocephalic Cardiovascular: Regular rate Abdomen: Soft Extremities: Dry NE: The patient was alert and oriented.. Language was normal. Fund of knowledge was adequate. Pupils were equal and reactive to light. There was no afferent pupillary defect. Visual ibanez were normal. Funduscopic examination was limited. Extra-ocular movements were full. Ptosis was absent. There was no nystagmus. Facial sensation was normal. Face was symmetric with normal strength. Hearing was intact. Palate movements were normal. Neck strength was normal. There was normal tongue bulk and speed of movement. Tone was normal. Muscle bulk was normal. Mild tremors noted in BL hands.. Arms and legs were strong to confrontation. Vibration sensation was normal. Temperature and pinprick sensation was normal. Rapid alternating movements were normal. There was no dysmetria. There was no intention tremor. Gait was deferred due to bedrest. Arm and leg reflexes were 2+ and symmetric. Nance's sign was absent. Plantar responses were flexor. LAURIE IQBAL NP Jun 18, 2018 14:34 TUSHAR OLMSTEAD Jun 19, 2018 06:16
[2018-06-18] MEDS ORDERED: MAGNESIUM HYDROXIDE 30ML CUP PO PRN (15:00)
--- NOTE | 2018-06-18 15:54 | PN ---
Date/Time of Note Date/Time of Note DATE: 06/18/18 TIME: 15:50 Assessment/Plan VTE Prophylaxis Risk score (from Ns)>0 risk: 3 SCD applied (from Ns): Yes Pharmacological prophylaxis: LMWH Lines/Catheters IV Catheter Type (from Nrs): Peripheral IV Urinary Cath still in place: No Assessment/Plan Assessment/Plan 1. Alcohol related seizure, no recurrence 2. Alcoholism with withdrawal, on ativan PRN. thiamine and folic acid 3. HTN, norvasc 4. Hepatitis C, follow up with PCP 5. DVT prophylaxis: SCDs 6. 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 Result Diagram: 06/17/18 0602 06/18/18 0538 Results 24hrs Laboratory Tests Test 06/18/18 05:38 06/18/18 11:50 Sodium Level 139 Potassium Level 3.9 Chloride Level 105 Carbon Dioxide Level 25 Anion Gap 9 Blood Urea Nitrogen 12 Creatinine 0.62 Est Glomerular Filtrat Rate mL/min > 60 Glucose Level 120 Calcium Level 9.1 Total Bilirubin 0.6 Direct Bilirubin 0.00 Indirect Bilirubin 0.6 Aspartate Amino Transf (AST/SGOT) 151 H Alanine Aminotransferase (ALT/SGPT) 120 H Alkaline Phosphatase 71 Total Protein 8.0 Albumin 4.0 Globulin 4.00 H Albumin/Globulin Ratio 1.00 Lab Scanned Report REFERENCE LAB Subjective 24 Hr Interval Summary Free Text/Dictation weak, no seizure Exam/Review of Systems Vital Signs Vitals Vital Signs Date Temp Pulse Resp B/P (MAP) Pulse Ox O2 O2 Flow FiO2 Time Delivery Rate 06/18/18 99.9 93 18 138/89 15 Room Air 15:19 (105) 06/18/18 4.0 11:23 Intake and Output 06/17/18 06/17/18 06/18/18 1515:00 23:00 07:00 IntakeIntake Total 750 ml 1400 ml OutputOutput Total 1700 ml BalanceBalance -950 ml 1400 ml Exam Constitutional: alert, oriented, well developed Psych: no complaints, nl mood/affect Head: normocephalic, atraumatic Eyes: nl conjunctiva, EOMI, nl lids, nl sclera, PERRL ENMT: nl external ears & nose, nl lips & teeth, nl nasal mucosa & septum Neck: supple, non-tender Respiratory: clear to auscultation, normal air movement; No congested cough, No crackles/rales, No diminished breath sounds, No intercostal retraction, No labored breathing, No respirations, No tactile fremitus, No wheezing, No other Cardiovascular: regular rate and rhythm, nl pulses; No bruits, No diastolic murmur, No edema, No gallop, No irregular rhythm, No jugular venous distention (JVD), No murmurs/extra sounds, No rub, No systolic murmur, No S3, No S4, No other Gastrointestinal: soft, nl liver, spleen, non-tender Musculoskeletal: nl extremities to inspection Extremities: normal pulses; No calf tenderness, No cyanosis, No clubbing, No edema, No pitting pedal edema, No palpable cord, No tenderness, No other Neurological: OFF TRACK BETTING MANAGER II-XII intact, nl mental status, nl speech, nl strength Medications Medications Current Medications IV Flush (NS 3 ml) 3 ml PER PROTOCOL IV ; Start 06/15/18 at 22:00 Lorazepam (Ativan) 1 mg Q2H PRN IV seizure/withdrawl symptoms Last administered on 06/16/18at 11:08; Admin Dose 1 MG; Start 06/15/18 at 22:00 Acetaminophen (Tylenol Tab) 650 mg Q6H PRN PO PAIN LEVEL 1-3 OR FEVER Last administered on 06/18/18 08:12; Admin Dose 650 MG; Start 06/15/18 at 22:00 Docusate Sodium (Colace) 100 mg Q12H PRN PO CONSTIPATION; Start 06/15/18 at 22:00 Bisacodyl (Dulcolax) 5 mg DAILY PRN PO CONSTIPATION; Start 06/15/18 at 22:00 Folic Acid (Folic Acid) 1 mg DAILY PO Last administered on 06/18/18 08:12; Admin Dose 1 MG; Start 06/16/18 at 09:00 Multivitamins Therapeutic (Theragran) 1 tab DAILY PO Last administered on 06/18/18 08:12; Admin Dose 1 TAB; Start 06/16/18 at 09:00 Thiamine HCl (Vitamin B1) 100 mg DAILY PO Last administered on 06/18/18 08:12; Admin Dose 100 MG; Start 06/16/18 at 09:00 Chlordiazepoxide (Librium) 25 mg TID PO Last administered on 1/16/19at 14:20; Admin Dose 25 MG; Start 06/17/18 at 22:00; Stop 06/18/18 at 21:59 Potassium Chloride 10 meq/ Sodium Chloride 1,005 ml @ 50 mls/hr Q20H6M IV Last administered on 06/17/18at 16:53; Admin Dose 50 MLS/HR; Start 06/16/18 at 14:00 Amlodipine Besylate (Norvasc) 5 mg DAILY PO Last administered on 06/18/18at 08:13; Admin Dose 5 MG; Start 06/16/18 at 14:00 Enoxaparin Sodium (Lovenox) 30 mg DAILY SC Last administered on 06/18/18at 08:19; Admin Dose 30 MG; Start 06/18/18 at 09:00 Collagenase (Santyl) 1 applic BID TOP Last administered on 06/18/18at 08:12; Admin Dose 1 APPLIC; Start 06/17/18 at 21:00 Magnesium Hydroxide (Milk Of Mag) 30 ml DAILY PRN PO CONSTIPATION; Start 06/18/18 at 15:00 CHRISTINA BUTT MD Jun 18, 2018 15:54
[2018-06-19] VITALS (9 sets, daily range): BP systolic 138–139; BP diastolic 70–86; PULSE 78–94; RESP 16–19
[2018-06-19] MEDS: FOLIC ACID 1 MG TAB PO SCH (08:35)
[2018-06-19] MEDS: MULTIVITAMINS THERAPEUTIC TAB PO SCH (08:35)
[2018-06-19] MEDS: AMLODIPINE 5 MG TAB PO SCH (08:35)
[2018-06-19] MEDS: THIAMINE 100 MG TAB PO SCH (08:35)
[2018-06-19] MEDS: COLLAGENASE 5 GM (UD JAR) TOP SCH ×2 (08:35→21:07)
[2018-06-19] MEDS: ENOXAPARIN 30 MG/0.3 ML SYG SC SCH (08:46)
--- NOTE | 2018-06-19 14:06 | CONS ---
Assessment/Plan Assessment/Plan Hospital Course A: 47 yo M with Hx of ETOH abuse and other comorbidities... who presents to [facility] in [place] from an OSH for continued care following reported seizures in the context of ETOH withdrawal.. He was noted to have been encephalopathic initially, which is likely attributable to a post-ictal encephalopathy and medication effect...superimposed on ETOH w/d.. CTH is unremarkable.. P: OK to defer MRI brain for now.. Ativan IV PRN seizure > 5 min or for cluster Limit other sedating mediations where possible Agree with folate, thiamine supplementation daily Other medical management and supportive care per primary Will follow clinically Result Diagram: 06/17/18 0602 06/18/18 0538 Results 24hrs Laboratory Tests Test 06/18/18 21:15 Urine Color YELLOW Urine Clarity CLEAR Urine pH 6.0 Urine Specific [place] 1.011 Urine Ketones NEGATIVE Urine Nitrite NEGATIVE Urine Bilirubin NEGATIVE Urine Urobilinogen 2+ H Urine Leukocyte Esterase NEGATIVE Urine Hemoglobin NEGATIVE Urine Glucose NEGATIVE Urine Total Protein NEGATIVE Urine Opiates Screen Negative Urine Barbiturates Negative Urine Amphetamines Screen Negative Urine Benzodiazepines Screen Positive Urine Cocaine Screen Negative Urine Cannabinoids Positive Consultation Date/Type/Reason Admit Date/Time Jun 15, 2018 at 19:23 Type of Consult Neurology Reason for Consultation seizure Requesting Provider: SPENSER SAMANIEGO Date/Time of Note DATE: 06/19/18 TIME: 14:06 24 HR Interval Summary Free Text/Dictation Continues telemetry monitoring. Pt has c/o tongue pain and L elbow pain but is otherwise without neurologic complaints at this time. No seizure events reported. Exam Vital Signs Vitals Vital Signs Date Temp Pulse Resp B/P (MAP) Pulse Ox O2 O2 Flow FiO2 Time Delivery Rate 06/19/18 93 12:27 06/19/18 99.3 18 139/83 100 Room Air 11:23 (101) 06/18/18 4.0 11:23 Intake and Output 06/18/18 06/18/18 06/19/18 1515:00 23:00 07:00 IntakeIntake Total 1950 ml 1300 ml OutputOutput Total 1800 ml BalanceBalance 1950 ml -500 ml Exam PE: Gen Appearance: Unkempt, disheveled, anxious HEENT: Normocephalic Cardiovascular: Regular rate Abdomen: Soft Extremities: Dry NE: The patient was alert and oriented.. Language was normal. Fund of knowledge was adequate. Pupils were equal and reactive to light. There was no afferent pupillary defect. Visual ibanez were normal. Funduscopic examination was limited. Extra-ocular movements were full. Ptosis was absent. There was no nystagmus. Facial sensation was normal. Face was symmetric with normal strength. Hearing was intact. Palate movements were normal. Neck strength was normal. There was normal tongue bulk and speed of movement. Tone was normal. Muscle bulk was normal. Mild tremors noted in BL hands.. Arms and legs were strong to confrontation. Vibration sensation was normal. Temperature and pinprick sensation was normal. Rapid alternating movements were normal. There was no dysmetria. There was no intention tremor. Gait was deferred due to bedrest. Arm and leg reflexes were 2+ and symmetric. Nance's sign was absent. Plantar responses were flexor. LAURIE IQBAL NP Jun 19, 2018 14:06 TUSHAR OLMSTEAD Jun 20, 2018 06:11
[2018-06-19] MEDS: CHLORHEXIDINE GLUCONATE 15 ML UD CUP MT SCH ×2 (15:02→21:07)
--- NOTE | 2018-06-19 15:30 | PN ---
Date/Time of Note Date/Time of Note DATE: 06/19/18 TIME: 15:27 Assessment/Plan VTE Prophylaxis Risk score (from [facility])>0 risk: 2 SCD applied (from [facility]): Yes Pharmacological prophylaxis: NA/contraindicated Pharm contraindication: low risk/ambulating Lines/Catheters IV Catheter Type (from [facility]): [place] Urinary Cath still in place: No Assessment/Plan Assessment/Plan 1. Alcohol related seizure, no recurrence 2. Alcoholism with withdrawal, on ativan PRN. thiamine and folic acid 3. HTN, norvasc 4. Hepatitis C, follow up with PCP 5. Left elbow wound, MRSA, bactrim DS 6. Tongue ulcer, bactrim 7. DVT prophylaxis: SCDs 8. Homeless, medical case manager for discharge plan Result Diagram: 06/17/18 0602 06/18/18 0538 Results 24hrs Laboratory Tests Test 06/18/18 21:15 Urine Color YELLOW Urine Clarity CLEAR Urine pH 6.0 Urine Specific [place] 1.011 Urine Ketones NEGATIVE Urine Nitrite NEGATIVE Urine Bilirubin NEGATIVE Urine Urobilinogen 2+ H Urine Leukocyte Esterase NEGATIVE Urine Hemoglobin NEGATIVE Urine Glucose NEGATIVE Urine Total Protein NEGATIVE Urine Opiates Screen Negative Urine Barbiturates Negative Urine Amphetamines Screen Negative Urine Benzodiazepines Screen Positive Urine Cocaine Screen Negative Urine Cannabinoids Positive Subjective 24 Hr Interval Summary Free Text/Dictation no event Exam/Review of Systems Vital Signs Vitals Vital Signs Date Temp Pulse Resp B/P (MAP) Pulse Ox O2 O2 Flow FiO2 Time Delivery Rate 06/19/18 93 12:27 06/19/18 99.3 18 139/83 100 Room Air 11:23 (101) 06/18/18 4.0 11:23 Intake and Output 06/18/18 06/18/18 06/19/18 1515:00 23:00 07:00 IntakeIntake Total 1950 ml 1300 ml OutputOutput Total 1800 ml BalanceBalance 1950 ml -500 ml Exam Constitutional: alert, oriented, well developed Psych: no complaints, nl mood/affect Head: normocephalic, atraumatic Eyes: nl conjunctiva, EOMI, nl lids, PERRL ENMT: other (ulcer at left side tongue) Neck: supple, non-tender Respiratory: clear to auscultation, normal air movement; No congested cough, No crackles/rales, No diminished breath sounds, No intercostal retraction, No labored breathing, No respirations, No tactile fremitus, No wheezing, No other Cardiovascular: regular rate and rhythm, nl pulses; No bruits, No diastolic murmur, No edema, No gallop, No irregular rhythm, No jugular venous distention (JVD), No murmurs/extra sounds, No rub, No systolic murmur, No S3, No S4, No other Gastrointestinal: soft, nl liver, spleen, non-tender Extremities: other (left elbaw wound) Neurological: CARDIOVASCULAR PHYSICIAN ASSISTANT II-XII intact, nl mental status, nl speech, nl strength Medications Medications Current Medications IV Flush (NS 3 ml) 3 ml PER PROTOCOL IV ; Start 06/15/18 at 22:00 Lorazepam (Ativan) 1 mg Q2H PRN IV seizure/withdrawl symptoms Last administered on 06/16/18at 11:08; Admin Dose 1 MG; Start 06/15/18 at 22:00 Acetaminophen (Tylenol Tab) 650 mg Q6H PRN PO PAIN LEVEL 1-3 OR FEVER Last administered on 06/18/18at 21:17; Admin Dose 650 MG; Start 06/15/18 at 22:00 Docusate Sodium (Colace) 100 mg Q12H PRN PO CONSTIPATION; Start 06/15/18 at 22:00 Bisacodyl (Dulcolax) 5 mg DAILY PRN PO CONSTIPATION; Start 06/15/18 at 22:00 Folic Acid (Folic Acid) 1 mg DAILY PO Last administered on 06/19/18at 08:35; Admin Dose 1 MG; Start 06/16/18 at 09:00 Multivitamins Therapeutic (Theragran) 1 tab DAILY PO Last administered on 06/19/18at 08:35; Admin Dose 1 TAB; Start 06/16/18 at 09:00 Thiamine HCl (Vitamin B1) 100 mg DAILY PO Last administered on 06/19/18 08:35; Admin Dose 100 MG; Start 06/16/18 at 09:00 Amlodipine Besylate (Norvasc) 5 mg DAILY PO Last administered on 06/19/18at 08:35; Admin Dose 5 MG; Start 06/16/18 at 14:00 Enoxaparin Sodium (Lovenox) 30 mg DAILY SC Last administered on 06/19/18at 08:46; Admin Dose 30 MG; Start 06/18/18 at 09:00 Collagenase (Santyl) 1 applic BID TOP Last administered on 06/19/18at 08:35; Admin Dose 1 APPLIC; Start 06/17/18 at 21:00 Magnesium Hydroxide (Milk Of Mag) 30 ml DAILY PRN PO CONSTIPATION; Start 06/18/18 at 15:00 Chlorhexidine Gluconate (Peridex) 15 ml BID MT Last administered on 06/19/18at 15:02; Admin Dose 15 ML; Start 06/19/18 at 15:00 CHRISTINA BUTT MD Jun 19, 2018 15:30
[2018-06-19] MEDS: TRIMETHOPRIM/SULFAMETHOX (DS) TAB PO SCH (21:07)
[2018-06-19] MEDS: MUPIROCIN 2% 22 GM OINT TOP SCH (21:07)
[2018-06-20 01:30] VITALS: BP 137/78; PULSE 90; RESP 17
[2018-06-20 07:33] VITALS: BP 115/62; PULSE 88; RESP 18
[2018-06-20] MEDS: COLLAGENASE 5 GM (UD JAR) TOP SCH (08:56)
[2018-06-20] MEDS: FOLIC ACID 1 MG TAB PO SCH (08:57)
[2018-06-20] MEDS: TRIMETHOPRIM/SULFAMETHOX (DS) TAB PO SCH (08:57)
[2018-06-20] MEDS: MULTIVITAMINS THERAPEUTIC TAB PO SCH (08:57)
[2018-06-20] MEDS: THIAMINE 100 MG TAB PO SCH (08:58)
[2018-06-20] MEDS: AMLODIPINE 5 MG TAB PO SCH (08:58)
[2018-06-20] MEDS: ENOXAPARIN 30 MG/0.3 ML SYG SC SCH (09:00)
[2018-06-20] MEDS: CHLORHEXIDINE GLUCONATE 15 ML UD CUP MT SCH (10:26)
[2018-06-20] MEDS: MUPIROCIN 2% 22 GM OINT TOP SCH (10:26)
--- NOTE | 2018-06-20 14:22 | CONS ---
Assessment/Plan Assessment/Plan Hospital Course A: 47 yo M with Hx of ETOH abuse and other comorbidities... who presents to [facility] in [place] from an OSH for continued care following reported seizures in the context of ETOH withdrawal.. He was noted to have been encephalopathic initially, which is likely attributable to a post-ictal encephalopathy and medication effect...superimposed on ETOH w/d.. CTH is unremarkable.. P: OK to defer MRI brain for now.. Ativan IV PRN seizure > 5 min or for cluster Limit other sedating mediations where possible Agree with folate, thiamine supplementation daily Other medical management and supportive care per primary Will follow clinically Result Diagram: 06/17/18 0602 06/18/18 0538 Consultation Date/Type/Reason Admit Date/Time Jun 15, 2018 at 19:23 Type of Consult Neurology Reason for Consultation seizure Requesting Provider: SPENSER SAMANIEGO Date/Time of Note DATE: 06/20/18 TIME: 14:22 24 HR Interval Summary Free Text/Dictation Continues medsurg monitoring. No acute events reported. Awaiting discharge. Exam Vital Signs Vitals Vital Signs Date Temp Pulse Resp B/P (MAP) Pulse Ox O2 O2 Flow FiO2 Time Delivery Rate 06/20/18 98.2 88 18 115/62 98 07:33 (79) 06/20/18 Room Air 01:30 06/18/18 4.0 11:23 Intake and Output 06/19/18 06/19/18 06/20/18 1515:00 23:00 07:00 IntakeIntake Total 2160 ml 500 ml OutputOutput Total 1500 ml 200 ml BalanceBalance 660 ml 300 ml Exam PE: Gen Appearance: Unkempt, disheveled HEENT: Normocephalic Cardiovascular: Regular rate Abdomen: Soft Extremities: Dry NE: The patient was alert and oriented.. Language was normal. Fund of knowledge was adequate. Pupils were equal and reactive to light. There was no afferent pupillary defect. Visual ibanez were normal. Funduscopic examination was limited. Extra-ocular movements were full. Ptosis was absent. There was no nystagmus. Facial sensation was normal. Face was symmetric with normal strength. Hearing was intact. Palate movements were normal. Neck strength was normal. There was normal tongue bulk and speed of movement. Tone was normal. Muscle bulk was normal. Mild tremors noted in BL hands.. Arms and legs were strong to confrontation. Vibration sensation was normal. Temperature and pinprick sensation was normal. Rapid alternating movements were normal. There was no dysmetria. There was no intention tremor. Gait was deferred due to bedrest. Arm and leg reflexes were 2+ and symmetric. Nance's sign was absent. Plantar responses were flexor. LAURIE IQBAL NP Jun 20, 2018 14:22 TUSHAR OLMSTEAD Jun 21, 2018 07:52
[2018-06-20] MEDS ORDERED: AMLO-145 PO (14:39)
[2018-06-20] MEDS ORDERED: SULF-182 PO (14:39)
--- NOTE | 2018-06-20 14:43 | DS ---
Date/Time of Note Date/Time of Note DATE: 06/20/18 TIME: 14:39 Discharge Summary Admission/Discharge Info Admit Date/Time Jun 15, 2018 at 19:23 Discharge Date/Time Discharge Diagnosis 1. Alcohol related seizure, no recurrence 2. Alcoholism with withdrawal,resolved 3. HTN, controlled with norvasc 4. Hepatitis C, follow up with PCP 5. Left elbow wound, MRSA, bactrim DS 6. Tongue ulcer, bactrim Patient Condition: Stable Hospital Course This is a 47-year-old male with a past medical history of alcohol abuse, alcohol withdrawal syndrome and alcohol withdrawal seizures who presented to [facility] after having seizures. Based on the transfer documentation it appears that the patient presented there with tonic-clonic seizures that were intermittent. Patient was also noted to have a tongue laceration. He had reportedly not drunk for 12 hours. At the facility patient was noted to have a tongue laceration and apparently had a taking care of. Patient also was given Ativan for withdrawal symptoms at the transfer facility. Upon examination [facility] patient reports that the last thing he remembers was walking down the street to get some alcohol and then next thing he knew he woke up in the hospital. He denies any headaches. Patient is getting supportive care. No further seizure. No withdrawal symptoms. Patient has a wound on left elbow that is healing and an ulcer at tongue. He is discharged with bactrim DS for 7 days. His blood pressure is well controlled with norvasc. Home Meds Active Scripts Amlodipine Besylate* (Amlodipine Besylate*) 5 Mg Tablet, 5 MG PO DAILY for 30 Days, TAB Prov:CHRISTINA BUTT MD 06/20/18 Sulfamethoxazole/Trimethoprim (Sulfamethoxazole-Tmp Ds Tablet) 1 Each Tablet, 1 TAB PO BID for 7 Days, TAB Prov:CHRISTINA BUTT MD 06/20/18 Thiamine* (Thiamine*) 100 Mg Tablet, 100 MG PO DAILY, #30 TAB Prov:GELA BORRERO 03/21/18 Folic Acid* (Folic Acid*) 1 Mg Tablet, 1 MG PO DAILY, #30 TAB 2 Refills Prov:GELA BORRERO 03/21/18 Multivitamin (MULTI VITAMIN DAILY) 1 Each Tablet, 1 TAB PO DAILY, #30 TAB 2 Refills Prov:GELA BORRERO 03/21/18 Discontinued Scripts Metoprolol Tartrate* (Lopressor*) 25 Mg Tab, 25 MG PO Q6H for 30 Days, #60 TAB 2 Refills Prov:GELA BORRERO 03/21/18 Follow-up Plan PCP in one week neurology in one week Primary Care Provider Care Physician No Primary CHRISTINA BUTT MD Jun 20, 2018 14:42
[2018-06-20] MEDS ORDERED: CLIN300C10 PO (15:07)
== END 2018-06-20 15:30 | disposition home or self-care (01) | DRG 896 ==
LOC: TEL 14:25 → UNDOADMIN 14:25 → TEL 14:28 → MS1 06-20 01:23
PROVIDERS: ADMIT Internal Medicine; ATTEND Internal Medicine
DX: F10.239 Alcohol dependence with withdrawal, unspecified (principal); G92 Toxic encephalopathy; G40.89 Other seizures; B19.20 Unspecified viral hepatitis C without hepatic coma; I10 Essential (primary) hypertension; Y90.0 Blood alcohol level of less than 20 mg/100 ml; S51.002A Unspecified open wound of left elbow, initial encounter; B95.62 Methicillin resistant Staphylococcus aureus infection as the cause of diseases classified elsewhere; X58.XXXA Exposure to other specified factors, initial encounter; Y93.9 Activity, unspecified; Y92.9 Unspecified place or not applicable; Y99.8 Other external cause status; Z59.0 Homelessness
CPT/HCPCS: 70450; 76705; 80053; 80061; 80307; 81003; 82607; 83036; 83735; 84425; 84443; 85025; 87070; 87081; 87522; J1650; J2060; J3411; J3480; J7030

== ENCOUNTER 2018-07-05 09:49 | Inpatient (IN) | payer OTHER ==
[~2018-07-05] VITALS: Ht 185.4 cm; Wt 81.5 kg
[~2018-07-05 09:49] MED LIST changes: +AMLO-145 PO; +CLIN300C10 PO; -METO-448 PO
[2018-12-21 16:40] VITALS: Ht 185.4 cm; Wt 81.5 kg
[2018-12-21 17:00] VITALS: BP 159/86; PULSE 98; RESP 17
[2018-12-21] MEDS ORDERED: ONDANSETRON 4 MG INJ IV PRN (17:00)
[2018-12-21] MEDS ORDERED: LORAZEPAM 2 MG INJ IV PRN (17:00)
[2018-12-21] MEDS ORDERED: VANCOMYCIN IV PER PHARMACY XX SCH (17:00)
[2018-12-21] MEDS ORDERED: ZOLPIDEM 5 MG TAB PO PRN (17:00)
[2018-12-21] MEDS ORDERED: DOCUSATE SODIUM 100 MG CAP PO PRN (17:00)
[2018-12-21] MEDS ORDERED: NACL 0.9% 3 ML SYG IV SCH (17:00)
[2018-12-21] MEDS: morphine 2 MG INJ IV PRN (17:22)
[2018-12-21] MEDS ORDERED: VANCOMYCIN 1.5 GM/NS 250 ML 250 ML IVPB ONE (18:30)
[2018-12-21 19:53] VITALS: BP 143/79; PULSE 128; RESP 18
[2018-12-21] MEDS: ACETAMINOPHEN 325 MG TAB PO PRN (20:39)
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
[2018-12-21] MEDS: CEFEPIME 1GM/50 ML (PMX) 50 ML IVPB SCH (23:39)
[2018-12-22 01:47] VITALS: BP 136/70; PULSE 105; RESP 18
[2018-12-22] MEDS: VANCOMYCIN 750 MG (PMX) 250 ML IVPB SCH ×2 (05:05→14:30)
[2018-12-22 07:38] VITALS: BP 163/94; PULSE 112; RESP 16
[2018-12-22] MEDS: SOD CHLORIDE 0.9% 1,000 ML IV SCH ×3 (07:52→18:38)
[2018-12-22] MEDS: ACETAMINOPHEN 325 MG TAB PO PRN (07:53)
[2018-12-22] MEDS: HYDROCODONE/APAP (5/325) TAB PO PRN ×2 (08:30→15:37)
[2018-12-22] MEDS: CHLORDIAZEPOXIDE 25 MG CAP PO SCH ×3 (08:30→21:43)
[2018-12-22] MEDS: FOLIC ACID 1 MG TAB PO SCH (08:30)
[2018-12-22] MEDS: MULTIVITAMINS THERAPEUTIC TAB PO SCH (08:30)
[2018-12-22] MEDS: CEFEPIME 1GM/50 ML (PMX) 50 ML IVPB SCH ×2 (08:31→21:34)
[2018-12-22] MEDS: AMLODIPINE 5 MG TAB PO SCH (08:31)
[2018-12-22] MEDS: THIAMINE 100 MG TAB PO SCH (08:31)
[2018-12-22] MEDS ORDERED: MAGNESIUM SULFATE 2 GM/50 ML 50 ML IVPB ONE (09:00)
[2018-12-22] MEDS ORDERED: POTASSIUM CHLORIDE 100 ML IVPB ONE (09:00)
[2018-12-22 09:30] VITALS: BP 124/76; PULSE 112
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
[2018-12-22 14:41] VITALS: BP 133/84; PULSE 102; RESP 16
[2018-12-22] MEDS ORDERED: IOHEXOL 300MG/ML 150 ML BTL ONE (16:44)
[2018-12-22] MEDS ORDERED: SOD CHLORIDE 0.9% 100 ML ONE (16:44)
[2018-12-22 19:53] VITALS: BP 126/78; PULSE 101; RESP 16
[2018-12-22] MEDS: VANCOMYCIN 1 GM 250 ML IVPB SCH (21:34)
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
[2018-12-22] MEDS: morphine 2 MG INJ IV PRN (21:56)
[2018-12-23 01:23] VITALS: BP 137/76; PULSE 94; RESP 16
[2018-12-23] MEDS: VANCOMYCIN 1 GM 250 ML IVPB SCH ×3 (04:38→20:35)
[2018-12-23] MEDS: SOD CHLORIDE 0.9% 1,000 ML IV SCH ×3 (05:18→23:28)
[2018-12-23 07:46] VITALS: BP 116/83; PULSE 104; RESP 18
[2018-12-23] MEDS: THIAMINE 100 MG TAB PO SCH (08:57)
[2018-12-23] MEDS: CEFEPIME 1GM/50 ML (PMX) 50 ML IVPB SCH ×2 (08:57→20:35)
[2018-12-23] MEDS: NEOMYC/POLYMYX/BACIT 30 GM OINT TOP SCH (08:57)
[2018-12-23] MEDS: AMLODIPINE 5 MG TAB PO SCH (08:58)
[2018-12-23] MEDS: FOLIC ACID 1 MG TAB PO SCH (08:58)
[2018-12-23] MEDS: MULTIVITAMINS THERAPEUTIC TAB PO SCH (08:58)
[2018-12-23] MEDS: CHLORDIAZEPOXIDE 25 MG CAP PO SCH ×3 (08:58→20:35)
[2018-12-23] MEDS: morphine 2 MG INJ IV PRN ×2 (09:10→16:11)
[2018-12-23] MEDS: ACETAMINOPHEN 325 MG TAB PO PRN (09:18)
--- NOTE | 2018-12-23 13:13 | PN ---
DATE: 12/23/2018 SUBJECTIVE: Patient is alert, feels good. Denies pain at the moment, had been having low grade feve rs overnight with a T-max of 100.5. WBC 8, platelets 237, no shift, no bands. BUN 7, creatinine 0.5 1. Blood and urine cultures negative. Upper extremity CT revealed no drainable abscess. ANTIMICROBIALS: The patient is on: 1. IV vancomycin. 2. Cefepime. PHYSICAL EXAMINATION: GENERAL: This is well-developed, well-nourished, middle-aged man who is alert, in no distress. HEENT: Head atraumatic, normocephalic. Sclerae anicteric. Buccal mucosa pink. NECK: Supple. CHEST: Rise symmetrical. Breath sounds clear. HEART: S1, S2. ABDOMEN: Soft, bowel tones present. EXTREMITIES: With right upper extremity swelling of the forearm and elbow with erythema. ASSESSMENT: 1. Right upper extremity cellulitis. 2. Homelessness. 3. Resolving sepsis. 4. ETOH abuse. 5. Hypertension. PLAN: The patient is clinically stable. We will keep him on current antibiotics. We will continue elevation of his right upper extremity. Swab nares for MRSA. Consider hand surgical or surgical jeff luation. Dictated By: DYLON WALL [employer]OR MAKING SUPERVISOR for DERRELL LOZANO MD NI/NTS Conf#: [id number] DID#: [id number] CC: TC CARTER MD;*EndCC*
[2018-12-23 13:31] VITALS: BP 122/69; PULSE 97; RESP 18
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
[2018-12-23] MEDS ORDERED: POTASSIUM CHLORIDE (SR) 20 MEQ TAB PO STA (16:10)
[2018-12-23] MEDS: HYDROCODONE/APAP (5/325) TAB PO PRN ×2 (18:06→23:23)
[2018-12-23 20:00] VITALS: BP 132/76; PULSE 93; RESP 18
[2018-12-24 01:39] VITALS: BP 129/78; PULSE 87; RESP 18
[2018-12-24] MEDS: SOD CHLORIDE 0.9% 1,000 ML IV SCH (05:20)
[2018-12-24] MEDS: VANCOMYCIN 1 GM 250 ML IVPB SCH (05:20)
[2018-12-24] MEDS: morphine 2 MG INJ IV PRN ×3 (05:31→15:58)
[2018-12-24 07:37] VITALS: BP 130/76; PULSE 81; RESP 16
[2018-12-24] MEDS: CEFEPIME 1GM/50 ML (PMX) 50 ML IVPB SCH ×2 (09:47→20:29)
[2018-12-24] MEDS: THIAMINE 100 MG TAB PO SCH (09:48)
[2018-12-24] MEDS: CHLORDIAZEPOXIDE 25 MG CAP PO SCH ×3 (09:48→20:29)
[2018-12-24] MEDS: AMLODIPINE 5 MG TAB PO SCH (09:48)
[2018-12-24] MEDS: FOLIC ACID 1 MG TAB PO SCH (09:48)
[2018-12-24] MEDS: MULTIVITAMINS THERAPEUTIC TAB PO SCH (09:48)
[2018-12-24] MEDS: NEOMYC/POLYMYX/BACIT 30 GM OINT TOP SCH (09:49)
[2018-12-24] MEDS: VANCOMYCIN 1.25 GM/NS 250 ML 250 ML IVPB SCH ×2 (13:13→21:39)
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
--- NOTE | 2018-12-24 13:31 | CONS ---
Assessment/Plan Assessment/Plan Hospital Course (Demo Recall) SUBJECTIVE: Patient is alert looks comfortable right upper extremity looks much better, no fevers overnight WBC 5.3 no shift no bands BUN 6 creatinine 0.58 Blood and urine cultures negative. Upper extremity CT revealed no drainable abscess. ANTIMICROBIALS: The patient is on: 1. IV vancomycin. 2. Cefepime. PHYSICAL EXAMINATION: GENERAL: This is well-developed, well-nourished, middle-aged man who is alert, in no distress. HEENT: Head atraumatic, normocephalic. Sclerae anicteric. Buccal mucosa pink. NECK: Supple. CHEST: Rise symmetrical. Breath sounds clear. HEART: S1, S2. ABDOMEN: Soft, bowel tones present. EXTREMITIES: Right upper extremity swelling decreased, erythema also decreased, patient has dressing over his elbow with some drainage ASSESSMENT: 1. Right upper extremity cellulitis with self draining abscess. 2. Homelessness. 3. Resolving sepsis. 4. ETOH abuse. 5. Hypertension. PLAN: He is doing better no fevers, right upper extremity looks better, continue antibiotics, continue right upper extremity elevation, send drainage for culture, and anticipate discharge on oral antibiotics Consultation Date/Type/Reason Admit Date/Time Dec 21, 2018 at 16:41 Initial Consult Date Type of Consult id Date/Time of Note DATE: 12/24/18 TIME: 13:30 Exam/Review of Systems Exam Vitals Vital Signs Date Temp Pulse Resp B/P (MAP) Pulse Ox O2 O2 Flow FiO2 Time Delivery Rate 12/24/18 99.1 81 16 130/76 95 07:37 (94) 12/21/18 Room Air 17:00 Intake and Output 12/23/18 12/23/18 12/24/18 1515:00 23:00 07:00 IntakeIntake Total 1730 ml 2150 ml 1140 ml OutputOutput Total 900 ml 1400 ml 250 ml BalanceBalance 830 ml 750 ml 890 ml Results Result Diagram: 12/24/18 1100 12/24/18 0346 Results 24hrs Laboratory Tests Test 12/24/18 03:46 12/24/18 11:00 White Blood Count 6.8 5.3 # Red Blood Count 2.43 L 2.54 L Hemoglobin 8.0 L 8.3 L Hematocrit 24.5 L 26.1 L Mean Corpuscular Volume 100.8 102.8 H Mean Corpuscular Hemoglobin 32.9 32.7 Mean Corpuscular Hemoglobin Concent 32.7 31.8 L Red Cell Distribution Width 11.9 11.9 Platelet Count 272 304 Mean Platelet Volume 9.3 9.5 Immature Granulocytes % 0.600 H 0.600 H Neutrophils % 61.7 62.5 Lymphocytes % 22.3 21.3 Monocytes % 14.0 H 14.1 H Eosinophils % 0.7 0.9 Basophils % 0.7 0.6 Nucleated Red Blood Cells % 0.0 0.0 Immature Granulocytes # 0.040 H 0.030 Neutrophils # 4.2 3.3 Lymphocytes # 1.5 1.1 Monocytes # 1.0 H 0.8 Eosinophils # 0.1 0.1 Basophils # 0.1 0.0 Nucleated Red Blood Cells # 0.0 0.0 Sodium Level 136 Potassium Level 3.9 Chloride Level 101 Carbon Dioxide Level 27 Anion Gap 8 Blood Urea Nitrogen 6 L Creatinine 0.58 L Est Glomerular Filtrat Rate mL/min > 60 Glucose Level 107 Calcium Level 8.0 L Vancomycin Level Trough 9.9 L Medications Medication Current Medications IV Flush (NS 3 ml) 3 ml PER PROTOCOL IV ; Start 12/21/18 at 17:00 Ondansetron HCl (Zofran Inj) 4 mg Q6H PRN IV NAUSEA/VOMITING Last administered on 12/23/18at 18:07; Admin Dose 4 MG; Start 12/21/18 at 17:00 Acetaminophen (Tylenol Tab) 650 mg Q6H PRN PO .PAIN 1-3 OR TEMP Last administered on 12/23/18at 09:18; Admin Dose 650 MG; Start 12/21/18 at 17:00 Acetaminophen/ Hydrocodone Bitart ([place] (5/325)) 1 tab Q6H PRN PO .MOD PAIN 4- 6 Last administered on 12/23/18at 23:23; Admin Dose 1 TAB; Start 12/21/18 at 17:00 Morphine Sulfate (morphine) 2 mg Q4H PRN IV .SEVERE PAIN 7-10 Last administered on 12/24/18at 11:25; Admin Dose 2 MG; Start 12/21/18 at 17:00 Zolpidem Tartrate (Ambien) 5 mg QHS PRN PO .INSOMNIA; Start 12/21/18 at 17:00 Vancomycin HCl (Vanco Iv Per Pharmacy) VANCOMYCIN PER PHARMACY PER PROTOCOL XX ; Start 12/21/18 at 17:00 Amlodipine Besylate (Norvasc) 5 mg DAILY PO Last administered on 12/24/18 09:48; Admin Dose 5 MG; Start 12/22/18 at 09:00 Folic Acid (Folic Acid) 1 mg DAILY PO Last administered on 12/24/18 09:48; Admin Dose 1 MG; Start 12/22/18 at 09:00 Multivitamins Therapeutic (Theragran) 1 tab DAILY PO Last administered on 12/24/18 09:48; Admin Dose 1 TAB; Start 12/22/18 at 09:00 Thiamine HCl (Vitamin B1) 100 mg DAILY PO Last administered on 12/24/18 09:48; Admin Dose 100 MG; Start 12/22/18 at 09:00 Lorazepam (Ativan) 1 mg Q6H PRN IV AGITATION/ANXIETY Last administered on 12/21/18 17:22; Admin Dose 1 MG; Start 12/21/18 at 17:00 Cefepime HCl 50 ml @ 100 mls/hr Q12 IVPB Last administered on 12/24/18 09:47; Admin Dose 100 MLS/HR; Start 12/21/18 at 23:00 Chlordiazepoxide (Librium) 25 mg TID PO Last administered on 12/24/18 09:48; Admin Dose 25 MG; Start 12/22/18 at 09:00; Stop 12/24/18 at 21:01 Neomycin/ Polymyxin/ Bacitracin (Neosporin Topical Oint) 1 applic DAILY TOP Last administered on 12/24/18 09:49; Admin Dose 1 APPLIC; Start 12/23/18 at 09:00 Vancomycin/Sodium Chloride 250 ml @ 83.333 mls/ hr Q8H IVPB Last administered on 12/24/18at 13:13; Admin Dose 83.333 MLS/HR; Start 12/24/18 at 13:00 Miscellaneous Information (*Rx Drug Level Order Reminder*) VANCO TROUGH @ 2,000 2000 ONCE XX ; Start 12/25/18 at 20:00; Stop 12/25/18 at 20:01 Docusate Sodium (Colace) 100 mg Q12H PO ; Start 12/24/18 at 17:00 DYLON WALL NP 24, 2019 13:31
[2018-12-24 13:37] VITALS: BP 140/80; PULSE 82; RESP 16
[2018-12-24] MEDS: DOCUSATE SODIUM 100 MG CAP PO SCH (17:00)
[2018-12-24 19:44] VITALS: BP 145/85; PULSE 84; RESP 17
[2018-12-25 01:07] VITALS: BP_SYST 142; BP_SYST 144; BP_DIAS 66; BP_DIAS 81; PULSE 65; PULSE 85; RESP 18
[2018-12-25] MEDS: morphine 2 MG INJ IV PRN ×3 (03:29→20:24)
[2018-12-25] MEDS: VANCOMYCIN 1.25 GM/NS 250 ML 250 ML IVPB SCH ×3 (04:46→21:54)
[2018-12-25] MEDS: DOCUSATE SODIUM 100 MG CAP PO SCH ×2 (04:47→08:29)
[2018-12-25 07:51] VITALS: BP 132/81; PULSE 86; RESP 18
[2018-12-25] MEDS: CEFEPIME 1GM/50 ML (PMX) 50 ML IVPB SCH ×2 (08:28→20:27)
[2018-12-25] MEDS: AMLODIPINE 5 MG TAB PO SCH (08:29)
[2018-12-25] MEDS: FOLIC ACID 1 MG TAB PO SCH (08:29)
[2018-12-25] MEDS: MULTIVITAMINS THERAPEUTIC TAB PO SCH (08:29)
[2018-12-25] MEDS: THIAMINE 100 MG TAB PO SCH (08:32)
[2018-12-25] MEDS: NEOMYC/POLYMYX/BACIT 30 GM OINT TOP SCH ×2 (09:00→18:48)
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
[2018-12-25 14:29] VITALS: BP 128/77; PULSE 82; RESP 18
[2018-12-25 20:21] VITALS: BP 131/69; PULSE 87; RESP 18
[2018-12-26 01:34] VITALS: BP 136/77; PULSE 76; RESP 17
[2018-12-26] MEDS: DOCUSATE SODIUM 100 MG CAP PO SCH (05:00)
[2018-12-26] MEDS: VANCOMYCIN 1.25 GM/NS 250 ML 250 ML IVPB SCH (05:11)
[2018-12-26] MEDS: HYDROCODONE/APAP (5/325) TAB PO PRN (06:27)
[2018-12-26 08:19] VITALS: BP 123/77; PULSE 80; RESP 20
[2018-12-26] MEDS: CEFEPIME 1GM/50 ML (PMX) 50 ML IVPB SCH (09:30)
[2018-12-26] MEDS: THIAMINE 100 MG TAB PO SCH (09:30)
[2018-12-26] MEDS: MULTIVITAMINS THERAPEUTIC TAB PO SCH (09:30)
[2018-12-26] MEDS: FOLIC ACID 1 MG TAB PO SCH (09:30)
[2018-12-26] MEDS: AMLODIPINE 5 MG TAB PO SCH (09:31)
--- NOTE | 2018-12-26 11:03 | CONS ---
Assessment/Plan Assessment/Plan Hospital Course (Demo Recall) SUBJECTIVE: Looks comfortable, feels better Blood and urine cultures negative, wound culture + Strep pyogenes Upper extremity CT revealed no drainable abscess. ANTIMICROBIALS: 1. IV vancomycin. 2. Cefepime. PHYSICAL EXAMINATION: GENERAL: This is well-developed, well-nourished, middle-aged man who is alert, in no distress. HEENT: Head atraumatic, normocephalic. Sclerae anicteric. Buccal mucosa pink. NECK: Supple. CHEST: Rise symmetrical. Breath sounds clear. HEART: S1, S2. ABDOMEN: Soft, bowel tones present. EXTREMITIES: Right upper extremity looks much better, not swollen anymore, patient has a dressing over her right elbow ASSESSMENT: 1. Right upper extremity cellulitis, resolving. 2. Homelessness. 3. Resolving sepsis. 4. ETOH abuse. 5. Hypertension. PLAN: Patient is doing better, ok dc on oral Clindamycin for 7 more days Consultation Date/Type/Reason Admit Date/Time Dec 21, 2018 at 16:41 Initial Consult Date Type of Consult id Requesting Provider: GELA BORRERO Date/Time of Note DATE: 12/26/18 TIME: 11:02 Exam/Review of Systems Exam Vitals Vital Signs Date Temp Pulse Resp B/P (MAP) Pulse Ox O2 O2 Flow FiO2 Time Delivery Rate 12/26/18 98.2 80 20 123/77 100 08:19 (92) 12/25/18 Room Air 14:29 Intake and Output 12/25/18 12/25/18 12/26/18 1515:00 23:00 07:00 IntakeIntake Total 1160 ml 780 ml 250 ml OutputOutput Total 750 ml 1700 ml BalanceBalance 410 ml 780 ml -1450 ml Results Result Diagram: 12/25/18 0443 12/25/18 0443 Results 24hrs Laboratory Tests Test 12/25/18 19:49 Vancomycin Level Trough 12.9 Medications Medication Current Medications IV Flush (NS 3 ml) 3 ml PER PROTOCOL IV Last administered on 12/26/18at 10:40; Admin Dose 3 ML; Start 12/21/18 at 17:00 Ondansetron HCl (Zofran Inj) 4 mg Q6H PRN IV NAUSEA/VOMITING Last administered on 12/23/18at 18:07; Admin Dose 4 MG; Start 12/21/18 at 17:00 Acetaminophen (Tylenol Tab) 650 mg Q6H PRN PO .PAIN 1-3 OR TEMP Last administered on 12/23/18 09:18; Admin Dose 650 MG; Start 12/21/18 at 17:00 Acetaminophen/ Hydrocodone Bitart ([place] (5/325)) 1 tab Q6H PRN PO .MOD PAIN 4- 6 Last administered on 12/26/18 06:27; Admin Dose 1 TAB; Start 12/21/18 at 17:00 Morphine Sulfate (morphine) 2 mg Q4H PRN IV .SEVERE PAIN 7-10 Last administered on 12/25/18 20:24; Admin Dose 2 MG; Start 12/21/18 at 17:00 Zolpidem Tartrate (Ambien) 5 mg QHS PRN PO .INSOMNIA; Start 12/21/18 at 17:00 Vancomycin HCl (Vanco Iv Per Pharmacy) VANCOMYCIN PER PHARMACY PER PROTOCOL XX ; Start 12/21/18 at 17:00 Amlodipine Besylate (Norvasc) 5 mg DAILY PO Last administered on 12/26/18 09:31; Admin Dose 5 MG; Start 12/22/18 at 09:00 Folic Acid (Folic Acid) 1 mg DAILY PO Last administered on 12/26/18 09:30; Admin Dose 1 MG; Start 12/22/18 at 09:00 Multivitamins Therapeutic (Theragran) 1 tab DAILY PO Last administered on 12/26/18 09:30; Admin Dose 1 TAB; Start 12/22/18 at 09:00 Thiamine HCl (Vitamin B1) 100 mg DAILY PO Last administered on 12/26/18 09:30; Admin Dose 100 MG; Start 12/22/18 at 09:00 Lorazepam (Ativan) 1 mg Q6H PRN IV AGITATION/ANXIETY Last administered on 12/21/18 17:22; Admin Dose 1 MG; Start 12/21/18 at 17:00 Cefepime HCl 50 ml @ 100 mls/hr Q12 IVPB Last administered on 12/26/18 09:30; Admin Dose 100 MLS/HR; Start 12/21/18 at 23:00 Neomycin/ Polymyxin/ Bacitracin (Neosporin Topical Oint) 1 applic DAILY TOP Last administered on 7/25/19at 18:48; Admin Dose 1 APPLIC; Start 12/23/18 at 09:00 Vancomycin/Sodium Chloride 250 ml @ 83.333 mls/ hr Q8H IVPB Last administered on 12/26/18at 05:11; Admin Dose 83.333 MLS/HR; Start 12/24/18 at 13:00 Docusate Sodium (Colace) 100 mg Q12H PO Last administered on 12/25/18at 08:29; Admin Dose 100 MG; Start 12/24/18 at 17:00 DYLON WALL NP Dec 26, 2018 11:03
[2018-12-26] MEDS ORDERED: CLIN300C10 PO (12:00)
[2018-12-26] MEDS ORDERED: CLIN150C18 PO (12:00)
[2018-12-26] MEDS ORDERED: CLINDAMYCIN 300 MG CAP PO SCH (12:00)
--- NOTE | 2018-12-26 12:02 | PDOCDIS ---
Discharge Instructions CONDITION [id number] Patient Condition: [id number] Stable HOME CARE INSTRUCTIONS: [id number] Diet Instructions: [id number] Low Fat /Cholesterol ACTIVITY: [id number] Activity Restrictions: [id number] Slowly Increase Activity Rest between Activity FOLLOW UP/APPOINTMENTS Follow-up Plan Followup with your primary doctor within the next 1-2 weeks. If you don't have one please let someone know, we can give you resources that may help you pick one. You may call Dr Faisal Craig's office. he's accepting new patients Name, Degree: Faisal Craig MD Specialty: Internal Medicine Comments: Office Address: [address] [place] [address] [place] [id number] Office Office You may also call your insurance company to assign one to you. Review your medication list with your nurse before leaving and if you need new prescriptions please let your nurse know. I may have made changes to your home medications or given you new prescriptions, please let your primary doctor know as well. Stay compliant with your medications and report any side effects to your PCP or pharmacist. Return to the ER if you have any concerns and cannot reach your doctors or call your insurance company, they usually have a nurse that can help you. GELA BORRERO Dec 26, 2018 12:02
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
== END 2018-12-26 14:55 | disposition home or self-care (01) | DRG 872 ==
LOC: 2NE 12-21 16:41
PROVIDERS: ADMIT Internal Medicine; ATTEND Family Medicine
DX: A41.9 Sepsis, unspecified organism (principal); L03.113 Cellulitis of right upper limb; Z59.0 Homelessness; S01.91XD Laceration without foreign body of unspecified part of head, subsequent encounter; I10 Essential (primary) hypertension; B18.2 Chronic viral hepatitis C; F10.229 Alcohol dependence with intoxication, unspecified; Z85.89 Personal history of malignant neoplasm of other organs and systems; Z92.3 Personal history of irradiation; Z92.21 Personal history of antineoplastic chemotherapy; Y09 Assault by unspecified means
CPT/HCPCS: 71045; 73200; 80048; 80202; 81003; 82565; 83036; 83735; 84100; 84520; 85025; 87070; 87081; 87086; J0692; J2060; J2270; J2405; J3370; J3475; J3480; J7030; Q9967